=== PATIENT | female | born 1980 | race Caucasian/White ===

== ENCOUNTER → 2018-09-16 | Outpatient (CLI) | payer BC ==
--- NOTE | 2018-09-16 16:31 | 2DMMODE ---
[facility] [place] [address] 2 D/M-MODE ECHOCARDIOGRAM Name: GARDUNO,LISA M Room #: REG [facility]#: [id number] Admission: 09/16/18 Attend Phys: Dov Narayanan Discharge: Date of : 84 Date of Service: 09/16/18 1631 Report #: [id number] THIS REPORT FOR: //name// APPROVED REPORT Study performed: 09/16/2018 15:37:21 EXAM: Comprehensive 2D, Doppler, and color-flow Echocardiogram Patient Location: Out-Patient Status: routine BSA: 1.67 HR: 85 bpm BP: 102/70 mmHg Rhythm: NSR Other Information Study Quality: Good Indications Palpitations 2D Dimensions IVSd: 7.64 (7-11mm) LVOT Diam: 18.00 (18-24mm) LVDd: 46.68 mm PWd: 8.88 (7-11mm) Ascending Ao: 27.33 (22-36mm) LVDs: 38.12 (25-40mm) Aortic Root: 27.86 mm LV Single Plane 4CH: 47.97 % LV Single Plane 2CH: 51.40 % Biplane EF: 47.5 % Volumes Left Atrial Volume (Systole) Single Plane 4CH: 35.30 mL Single Plane 2CH: 24.27 mL LA ESV Index: 19.00 mL/m2 Aortic Valve AoV Peak José Manuel.: 1.19 m/s AO Peak Gr.: 5.62 mmHg LVOT Max P.62 mmHg LVOT Max V: 1.07 m/s ELDA Vmax: 2.33 cm2 Mitral Valve E/A Ratio: 1.0 [facility] [place] [address] 2 D/M-MODE ECHOCARDIOGRAM Name: GILBERT GARDUNO Room #: [facility]#: [id number] Admission: 09/16/18 Attend Phys: Dov Narayanan Discharge: Date of : 84 Date of Service: 09/16/18 1631 Report #: [id number] MV Decel. Time: 269.45 ms MV E Max José Manuel.: 0.57 m/s MV A José Manuel.: 0.55 m/s MV PHT: 78.14 ms IVRT: 41.52 ms TDI E/Lateral E': 3.80 E/Medial E': 5.18 Medial E' José Manuel.: 0.11 m/s Lateral E' José Manuel.: 0.15 m/s Pulmonary Valve PV Peak José Manuel.: 0.71 m/s PV Peak Gr.: 2.01 mmHg MA End Vmax: 0.71 m/s Pulmonary Vein P Vein S: 0.40 m/s P Vein A: 0.22 m/s P Vein D: 0.55 m/s P Vein A Dur.: 38.1 msec P Vein S/D Ratio: 0.73 Tricuspid Valve TR Peak José Manuel.: 1.60 m/s RAP Estimate: 7.00 mmHg TR Peak Gr.: 10.28 mmHg PA Pressure: 17.00 mmHg Left Ventricle The left ventricle is normal size. There is normal LV segmental wall motion. There is normal left ventricular wall thickness. Left ventricular systolic function is borderline. LVEF is 50%. The left ventricular diastolic function is normal. Right Ventricle The right ventricle is normal size. The right ventricular systolic function is normal. Atria The left atrium size is normal. The right atrium size is normal. Aortic Valve The aortic valve is normal in structure. No aortic regurgitation is present. There is no aortic valvular stenosis. Mitral Valve The mitral valve is normal in structure. No mitral regurgitation. No evidence of mitral valve stenosis. [facility] [address] [place] [address] 2 D/M-MODE ECHOCARDIOGRAM Name: GILBERT GARDUNO Room #: REG [facility]#: [id number] Admission: 09/16/18 [facility]: Date of : 84 Date of Service: 09/16/18 1631 Report #: [id number] Tricuspid Valve The tricuspid valve is normal in structure. Trace tricuspid regurgitation. Pulmonary artery pressure is 17 mmHg. Pulmonic Valve The pulmonary valve is normal in structure. Trace pulmonic regurgitation. Great Vessels The aortic root is normal in size. IVC is normal in size and collapses >50% with inspiration. Pericardium There is no pericardial effusion. <Conclusion> 1. Normal echocardiogram with Doppler. EF 50-55% 2. No pericardial effusion <ELECTRONICALLY SIGNED> By: oJsef Chauhan MD, FACC 09/16/18 1631 1631 1631 Josef Chauhan MD, FACC /INF
== END ==
LOC: CV 11:14
DX: R00.2 Palpitations (principal)